=== PATIENT | male | born 1935 | race African-American/Black ===

== ENCOUNTER 2020-05-11 18:10 | Observation (INO) ==
[2020-05-11] MEDS ORDERED: ASPIRIN 325 MG TABLET PO STA (19:03)
[2020-05-11] MEDS ORDERED: ONDANSETRON 4 MG/2 ML VIAL IV STA (19:03)
[2020-05-11 20:50] LABS: Alanine Aminotransferase < 9 U/L (16-61); Albumin 3.1 G/DL (3.4-5.0); Alkaline Phosphatase 102 U/L (45-117); Aspartate Amino Transferase 17 U/L (0-37); Blood Urea Nitrogen 16 MG/DL (7-18); Calcium 8.4 MG/DL (8.5-10.1); Estimated Glom Filtration Rate 15 ML/MIN; Glucose 93 MG/DL (74-106); Total Protein 7.6 G/DL (6.4-8.3)
[2020-05-11 21:03] LABS: Apearance,Urine CLOUDY (Clear); Bacteria,Urine Many /HPF (Few); Bilirubin,Urine Negative (Negative); Blood, Urine Negative (Negative); Glucose,Urine (UA) Negative (Negative); Ketones,Urine Negative (Negative); Mucus,Urine Many /LPF (Occasional); Nitrite,Urine Negative (Negative); Protein,Urine >=500 MG/DL; Urine Color Amber (Yellow); Urine Specific Gravity 1.015 (1.001-1.035); Urine Urobilinogen < 2.0 EU/DL (0.2-1.0)
[2020-05-11 21:14] LABS: Barbiturates Screen,Urine Negative (Negative); Benzodiazepines Screen,Urine Negative (Negative); Cannabinoid Screen,Urine Negative (Negative); Opiate Screen,Urine Negative (Negative); Phencyclidine Screen,Urine Negative (Negative)
[2020-05-11] MEDS ORDERED: ACETAMINOPHEN 325 MG TABLET PO PRN (23:45)
[2020-05-11] MEDS ORDERED: ONDANSETRON 4 MG/2 ML VIAL IV PRN (23:45)
[2020-05-11] MEDS ORDERED: MORPHINE 4 MG/1 ML VIAL IV PRN (23:45)
[2020-05-12] MEDS: SODIUM CHLORIDE 0.9% 1,000 ML IV SCH (00:17)
[2020-05-12 03:30] LABS: Basophils % 0.8 % (0.0-0.8); Eosinophils # 0.1 10*3/uL (0.0-0.87); Eosinophils % 2.9 % (0.00-10.9); Hematocrit 27.6 VOL% (42.0-52.0); Lymphocytes # 0.8 10*3/uL (1.4-4.0); Lymphocytes % 20.1 % (21.2-54.2); Mean Corpuscular HGB Conc 32.6 GM/DL (32-36); Mean Corpuscular Volume 95.2 FL (87-102); Monocytes % 16.1 % (1.7-12.7); Neutrophils % 60.1 % (38.7-73.9); Platelet Count 142 T/CUMM (130-400); Red Cell Distribution Width 16.3 % (9.3-17.3); White Blood Count 3.8 T/CUMM (4-12)
[2020-05-12 03:31] LABS: Alanine Aminotransferase < 9 U/L (16-61); Albumin 2.8 G/DL (3.4-5.0); Alkaline Phosphatase 92 U/L (45-117); Aspartate Amino Transferase 11 U/L (0-37); Blood Urea Nitrogen 19 MG/DL (7-18); Calcium 8.4 MG/DL (8.5-10.1); Estimated Glom Filtration Rate 13 ML/MIN; Glucose 80 MG/DL (74-106); HDL Cholesterol 43 MG/DL (40-60); Osmolality,Calculated 273.8 MOS/KG (273-304); Total Protein 6.8 G/DL (6.4-8.3); Triglycerides 48 MG/DL (2-150); VLDL CHOLESTEROL 9.6 MG/DL
[2020-05-12 04:21] LABS: Eosinophils 4 % (0-10); Hypochromasia Slight; Lymphocytes 17 % (20-55); Segmented Neutrophils 63 % (50-85); Total Cells Counted 100
[2020-05-12 04:22] LABS: Platelet Estimate Adequate
[2020-05-12] MEDS: DOCUSATE SODIUM 100 MG CAPSULE PO SCH ×2 (09:12→21:44)
[2020-05-12] MEDS: ASPIRIN EC 81 MG TABLET PO SCH (09:12)
[2020-05-12] MEDS: PANTOPRAZOLE 40 MG TABLET PO SCH (11:00)
[2020-05-12] MEDS: CALCIUM ACETATE 667 MG CAPSULE PO SCH (16:46)
[2020-05-13] MEDS: SODIUM CHLORIDE 0.9% 1,000 ML IV SCH (01:11)
[2020-05-13] MEDS ORDERED: PANTOPRAZOLE 40 MG TABLET PO SCH (09:00)
[2020-05-13] MEDS: CALCIUM ACETATE 667 MG CAPSULE PO SCH ×3 (09:23→18:05)
[2020-05-13] MEDS: MULTIVITAMIN (CENTRUM) TABLET PO SCH (09:23)
[2020-05-13] MEDS: CHOLECALCIFEROL 5,000 UNIT TABLET PO SCH (09:24)
[2020-05-13] MEDS: amLODIPine 10 MG TABLET PO SCH (09:24)
[2020-05-13] MEDS: PANTOPRAZOLE 40 MG TABLET PO SCH (09:24)
[2020-05-13] MEDS: ASPIRIN EC 81 MG TABLET PO SCH (09:24)
[2020-05-13] MEDS: DOCUSATE SODIUM 100 MG CAPSULE PO SCH ×2 (09:29→21:54)
[2020-05-13] MEDS: hydrALAZINE 20 MG/1 ML VIAL IV PRN (15:30)
[2020-05-14] MEDS: SODIUM CHLORIDE 0.9% 1,000 ML IV SCH (01:34)
[2020-05-14] MEDS: hydrALAZINE 20 MG/1 ML VIAL IV PRN (07:34)
[2020-05-14] MEDS: CALCIUM ACETATE 667 MG CAPSULE PO SCH ×3 (07:36→13:04)
[2020-05-14] MEDS: ASPIRIN EC 81 MG TABLET PO SCH (09:07)
[2020-05-14] MEDS: CHOLECALCIFEROL 5,000 UNIT TABLET PO SCH (09:07)
[2020-05-14] MEDS: MULTIVITAMIN (CENTRUM) TABLET PO SCH (09:07)
[2020-05-14] MEDS: amLODIPine 10 MG TABLET PO SCH (09:07)
[2020-05-14] MEDS: PANTOPRAZOLE 40 MG TABLET PO SCH (09:07)
[2020-05-14] MEDS: DOCUSATE SODIUM 100 MG CAPSULE PO SCH (09:07)
[2020-05-14 12:22] VITALS: BP 111/94
== END 2020-05-14 13:12 | disposition home health service (06) ==
LOC: N.ED 18:10 → N.EDINP 18:10 → N.TELES 23:34
PROVIDERS: ADMIT Internal Medicine; ATTEND Family Medicine

== ENCOUNTER 2020-09-28 03:20 | Observation (INO) ==
[2020-09-28] MEDS ORDERED: FUROSEMIDE 100 MG/10 ML VIAL IV STA (03:40)
[2020-09-28] MEDS ORDERED: ONDANSETRON 4 MG/2 ML VIAL IV STA (03:40)
[2020-09-28] MEDS ORDERED: NITROGLYCERIN 2% OINT 1 INCH/GM PACK TOP STA (03:40)
[2020-09-28] MEDS ORDERED: hydrALAZINE 20 MG/1 ML VIAL IV STA ×2 (03:40→04:59)
[2020-09-28 03:54] LABS: Basophils % 0.3 % (0.0-0.8); Eosinophils % 0.2 % (0.00-10.9); Hemoglobin 10.1 GM/DL (14.0-18.0); Immature Granulocytes % 0.8 %; Immature Granulocytes Absolute 0.08 #; Lymphocytes # 0.4 10*3/uL (1.4-4.0); Lymphocytes % 4.1 % (21.2-54.2); Mean Corpuscular HGB Conc 32.6 GM/DL (32-36); Mean Corpuscular Volume 94.8 FL (87-102); Mean Platelet Volume 10.8 FL (9.6-12.0); Monocytes % 11.1 % (1.7-12.7); Neutrophils % 83.5 % (38.7-73.9); Platelet Count 161 T/CUMM (130-400); Red Blood Count 3.27 MC/CUMM (3.8-5.5); Red Cell Distribution Width 15.6 % (9.3-17.3); White Blood Count 10.6 T/CUMM (4-12)
[2020-09-28 04:00] LABS: INR 1.1; PT Patient Result 11.3 SECS (9.8-11.9)
[2020-09-28 04:11] LABS: Albumin 3.6 G/DL (3.4-5.0); Bilirubin,Total 0.6 MG/DL (0.2-1.0); Calcium 9.3 MG/DL (8.5-10.1); Osmolality,Calculated 289.5 MOS/KG (273-304); Total Protein 8.1 G/DL (6.4-8.3)
[2020-09-28] MEDS ORDERED: FUROSEMIDE 40 MG/4 ML VIAL IV STA (05:19)
[2020-09-28] MEDS ORDERED: MORPHINE 4 MG/1 ML VIAL IV PRN (06:11)
[2020-09-28] MEDS ORDERED: ACETAMINOPHEN 325 MG TABLET PO PRN ×2 (06:11)
[2020-09-28] MEDS ORDERED: ONDANSETRON 4 MG/2 ML VIAL IV PRN (06:11)
[2020-09-28 07:23] LABS: Lymphocytes 4 % (20-55); Platelet Estimate Adequate; Segmented Neutrophils 86 % (50-85); Total Cells Counted 100
[2020-09-28 07:24] LABS: Hypochromasia 1+; Microcytosis Slight; Ovalocytes Slight
[2020-09-28] MEDS ORDERED: PANTOPRAZOLE 40 MG TABLET PO SCH (09:00)
[2020-09-28] MEDS: MULTIVITAMIN (CENTRUM) TABLET PO SCH (09:29)
[2020-09-28] MEDS: PANTOPRAZOLE 40 MG TABLET PO SCH (09:30)
[2020-09-28] MEDS: DOCUSATE SODIUM 100 MG CAPSULE PO SCH ×2 (09:30→21:08)
[2020-09-28] MEDS: amLODIPine 10 MG TABLET PO SCH (09:30)
[2020-09-28] MEDS: CALCIUM ACETATE 667 MG CAPSULE PO SCH ×3 (09:30→17:25)
[2020-09-28] MEDS: ASPIRIN EC 81 MG TABLET PO SCH (09:30)
[2020-09-28] MEDS ORDERED: traMADol 50 MG TABLET PO PRN (09:40)
[2020-09-28] MEDS ORDERED: hydrALAZINE 20 MG/1 ML VIAL IV PRN (09:40)
[2020-09-28] MEDS: CHOLECALCIFEROL 5,000 UNIT TABLET PO SCH (14:46)
[2020-09-28] MEDS: cefTRIAXone 1,000 MG in SYRINGE 1 EACH IV SCH (14:47)
[2020-09-28] MEDS: methylPREDNISolone SOD SUC 40 MG/1 ML VIAL IV SCH ×2 (14:49→21:08)
[2020-09-28] MEDS: AZITHROMYCIN INJ 500 MG in SODIUM CHLORIDE 0.9% 250 ML IV SCH (16:00)
[2020-09-29 05:55] LABS: Hematocrit 27.1 VOL% (42.0-52.0); Hemoglobin 8.8 GM/DL (14.0-18.0); Immature Granulocytes % 0.4 %; Immature Granulocytes Absolute 0.02 #; Lymphocytes # 0.4 10*3/uL (1.4-4.0); Mean Corpuscular HGB Conc 32.5 GM/DL (32-36); Mean Corpuscular Volume 94.8 FL (87-102); Mean Platelet Volume 11.1 FL (9.6-12.0); Monocytes % 2.8 % (1.7-12.7); Neutrophils % 89.8 % (38.7-73.9); Platelet Count 163 T/CUMM (130-400); Red Blood Count 2.86 MC/CUMM (3.8-5.5); Red Cell Distribution Width 15.5 % (9.3-17.3); White Blood Count 5.3 T/CUMM (4-12)
[2020-09-29 06:56] LABS: Bilirubin,Total 0.4 MG/DL (0.2-1.0); Calcium 9.1 MG/DL (8.5-10.1); Osmolality,Calculated 279.1 MOS/KG (273-304); Total Protein 7.6 G/DL (6.4-8.3)
[2020-09-29] MEDS: DOCUSATE SODIUM 100 MG CAPSULE PO SCH ×2 (08:50→21:42)
[2020-09-29] MEDS: amLODIPine 10 MG TABLET PO SCH (08:50)
[2020-09-29] MEDS: PANTOPRAZOLE 40 MG TABLET PO SCH (08:50)
[2020-09-29] MEDS: CALCIUM ACETATE 667 MG CAPSULE PO SCH ×3 (08:50→17:08)
[2020-09-29] MEDS: MULTIVITAMIN (CENTRUM) TABLET PO SCH (08:50)
[2020-09-29] MEDS: ASPIRIN EC 81 MG TABLET PO SCH (08:50)
[2020-09-29] MEDS: CHOLECALCIFEROL 5,000 UNIT TABLET PO SCH (08:51)
[2020-09-29] MEDS: cefTRIAXone 1,000 MG in SYRINGE 1 EACH IV SCH (09:00)
[2020-09-29] MEDS: methylPREDNISolone SOD SUC 40 MG/1 ML VIAL IV SCH ×2 (09:00→21:41)
[2020-09-29 12:23] LABS: Risk Ratio 1.98; VLDL CHOLESTEROL 8.2 MG/DL
[2020-09-29] MEDS: AZITHROMYCIN INJ 500 MG in SODIUM CHLORIDE 0.9% 250 ML IV SCH (16:30)
[2020-09-30 05:36] LABS: Basophils % 0.1 % (0.0-0.8); Hematocrit 28.4 VOL% (42.0-52.0); Hemoglobin 9.2 GM/DL (14.0-18.0); Immature Granulocytes % 0.4 %; Immature Granulocytes Absolute 0.03 #; Lymphocytes # 0.3 10*3/uL (1.4-4.0); Lymphocytes % 3.8 % (21.2-54.2); Mean Corpuscular HGB Conc 32.4 GM/DL (32-36); Mean Corpuscular Volume 94.4 FL (87-102); Mean Platelet Volume 10.9 FL (9.6-12.0); Monocytes % 4.8 % (1.7-12.7); Neutrophils % 90.9 % (38.7-73.9); Platelet Count 218 T/CUMM (130-400); Red Blood Count 3.01 MC/CUMM (3.8-5.5); Red Cell Distribution Width 15.3 % (9.3-17.3); White Blood Count 8.2 T/CUMM (4-12)
[2020-09-30 05:53] LABS: Calcium 8.7 MG/DL (8.5-10.1); Osmolality,Calculated 289.1 MOS/KG (273-304)
[2020-09-30 06:04] LABS: Lymphocytes 3 % (20-55); Platelet Estimate Adequate; Segmented Neutrophils 91 % (50-85); Total Cells Counted 100
[2020-09-30 06:05] LABS: Hypochromasia 1+; Microcytosis 1+; Ovalocytes Slight
[2020-09-30] MEDS: CALCIUM ACETATE 667 MG CAPSULE PO SCH ×2 (08:00→13:27)
[2020-09-30] MEDS: CHOLECALCIFEROL 5,000 UNIT TABLET PO SCH (13:26)
[2020-09-30] MEDS: ASPIRIN EC 81 MG TABLET PO SCH (13:26)
[2020-09-30] MEDS: DOCUSATE SODIUM 100 MG CAPSULE PO SCH (13:26)
[2020-09-30] MEDS: MULTIVITAMIN (CENTRUM) TABLET PO SCH (13:27)
[2020-09-30] MEDS: PANTOPRAZOLE 40 MG TABLET PO SCH (13:27)
[2020-09-30] MEDS: amLODIPine 10 MG TABLET PO SCH (13:27)
[2020-09-30] MEDS: methylPREDNISolone SOD SUC 40 MG/1 ML VIAL IV SCH (13:36)
[2020-09-30] MEDS: cefTRIAXone 1,000 MG in SYRINGE 1 EACH IV SCH (13:37)
[2020-09-30] MEDS ORDERED: cloNIDine 0.1 MG TABLET PO ONE (15:15)
[2020-09-30] MEDS: AZITHROMYCIN INJ 500 MG in SODIUM CHLORIDE 0.9% 250 ML IV SCH (15:45)
[2020-09-30 16:23] VITALS: BP 164/69
== END 2020-09-30 16:35 | disposition home health service (06) ==
LOC: EDUNIT# → EDBD → N.ED 03:20 → N.EDINP 03:20 → N.TELES 05:47
PROVIDERS: ADMIT Family Medicine; ATTEND Family Medicine